=== PATIENT | female | born 1945 | race Caucasian/White ===

== ENCOUNTER 2016-09-05 16:13 | Emergency (ER) | payer MEDICARE ==
[2016-09-05] MEDS ORDERED: KETOROLAC 60 MG/2 ML VIAL IVP STA (17:01)
[2016-09-05] MEDS ORDERED: SODIUM CHLORIDE 0.9% 1,000 ML IV ONE (17:01)
[2016-09-05] MEDS ORDERED: KETOROLAC 30 MG/ML VIAL ONE (17:13)
[2016-09-05] MEDS ORDERED: HYDROcod/ACET 5/325 Prepack 6 PO STA (20:56)
[2016-09-05] MEDS ORDERED: HYDROcod/ACET 5/325 Prepack 6 PO ONE (21:15)
[2016-09-05] MEDS ORDERED: LIDOCAINE PATCH 5% TOP STA (21:37)
[2016-09-05] MEDS ORDERED: LIDOCAINE PATCH 5% TOP ONE (21:38)
== END 2016-09-05 21:48 | disposition home or self-care (01) ==
DX: R10.11 Right upper quadrant pain (principal); R10.31 Right lower quadrant pain; I48.91 Unspecified atrial fibrillation; J45.909 Unspecified asthma, uncomplicated; G40.909 Epilepsy, unspecified, not intractable, without status epilepticus
CPT/HCPCS: 36415; 74176; 80053; 81003; 83690; 85025; 96374; 99284; A9270

== ENCOUNTER 2018-03-20 10:17 | Outpatient (CLI) | payer MEDICARE ==
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
== END 2018-03-20 10:18 | disposition home or self-care (01) ==
LOC: DI 10:17
PROVIDERS: ATTEND Psychiatry & Neurology Neurology
DX: M81.0 Age-related osteoporosis without current pathological fracture (principal); E55.9 Vitamin D deficiency, unspecified; G40.109 Localization-related (focal) (partial) symptomatic epilepsy and epileptic syndromes with simple partial seizures, not intractable, without status epilepticus; R53.83 Other fatigue; T88.7XXA Unspecified adverse effect of drug or medicament, initial encounter
CPT/HCPCS: 36415; 77080; 80053; 80185; 81599; 82652; 84443; 85025

== ENCOUNTER 2018-03-20 11:19 | Outpatient (CLI) | payer MEDICARE ==
[2018-03-20 12:03] LABS: BASOPHILS % (AUTO) 0.4 %; EOSINOPHILS # (AUTO) 0.1 10^3/uL (0.0-0.7); EOSINOPHILS % (AUTO) 0.9 %; HGB - HEMOGLOBIN 13.7 g/dL (12.0-16.0); LYMPHOCYTES # (AUTO) 1.4 10^3/uL (1.5-3.5); LYMPHOCYTES % (AUTO) 18.4 %; MEAN CORPUSCULAR HGB CONC 33.9 g/dL (32.0-36.0); MEAN CORPUSCULAR VOLUME 91.5 fL (81.0-99.0); MEAN PLATELET VOLUME 8.6 fL (7.9-10.8); MONOCYTES # (AUTO) 0.7 10^3/uL (0.0-1.0); MONOCYTES % (AUTO) 8.7 %; NEUTROPHILS # (AUTO) 5.4 10^3/uL (1.5-6.6); NEUTROPHILS % (AUTO) 71.6 %; PLT - PLATELET COUNT 231 10^3/uL (130-450); RED BLOOD COUNT 4.41 10^6/uL (4.20-5.40); RED CELL DISTRIBUTION WIDTH 13.9 % (12.0-15.0); WHITE BLOOD COUNT 7.5 x10^3/uL (4.8-10.8)
[2018-03-20 12:14] LABS: ALBUMIN/GLOBULIN RATIO 1.3 (1.0-2.2); BILIRUBIN,TOTAL 0.4 mg/dL (0.2-1.0); CREATININE 0.5 mg/dL (0.4-1.0); PHENYTOIN (DILANTIN) 16.5 ug/mL; TOTAL PROTEIN 7.1 g/dL (6.7-8.2)
== END 2018-03-20 11:20 | disposition home or self-care (01) ==
LOC: LAB 11:19
PROVIDERS: ATTEND Psychiatry & Neurology Neurology
DX: E55.9 Vitamin D deficiency, unspecified (principal); G40.109 Localization-related (focal) (partial) symptomatic epilepsy and epileptic syndromes with simple partial seizures, not intractable, without status epilepticus; R53.83 Other fatigue; T88.7XXA Unspecified adverse effect of drug or medicament, initial encounter
CPT/HCPCS: 36415; 80053; 80185; 81599; 82652; 84443; 85025

== ENCOUNTER 2018-06-30 12:24 | Outpatient (CLI) | payer MEDICARE | END 2018-06-30 12:25 | disposition critical access hospital (66) | LOC: EMS 12:24 | PROVIDERS: ATTEND Surgery | DX: M54.2 Cervicalgia (principal); M54.9 Dorsalgia, unspecified; V43.52XA Car driver injured in collision with other type car in traffic accident, initial encounter; Y92.413 State road as the place of occurrence of the external cause | CPT/HCPCS: A0425; A0429 ==

== ENCOUNTER 2018-06-30 12:55 | Emergency (ER) | payer OTHER, MEDICARE ==
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
[2018-06-30] MEDS ORDERED: KETOROLAC 60 MG/2 ML VIAL IM STA (17:22)
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
[2018-06-30 21:40] VITALS: BP 141/98
== END 2018-06-30 23:06 | disposition home or self-care (01) ==
LOC: EDUNIT# → ED 12:55
DX: T14.8XXA Other injury of unspecified body region, initial encounter (principal); V43.52XA Car driver injured in collision with other type car in traffic accident, initial encounter; Y92.411 Interstate highway as the place of occurrence of the external cause; F32.9 Major depressive disorder, single episode, unspecified; I48.91 Unspecified atrial fibrillation; R01.1 Cardiac murmur, unspecified
CPT/HCPCS: 70450; 71045; 72070; 72100; 72125; 96372; 99283

== ENCOUNTER 2018-08-08 16:19 | Outpatient (CLI) | payer MEDICARE | END 2018-08-08 16:20 | disposition home or self-care (01) | LOC: EMS 16:19 | PROVIDERS: ATTEND Surgery | DX: R42 Dizziness and giddiness (principal); R11.2 Nausea with vomiting, unspecified; R10.31 Right lower quadrant pain | CPT/HCPCS: A0425; A0427; A0888 ==

== ENCOUNTER 2022-09-01 17:52 | Outpatient (CLI) | payer MEDICARE | END 2022-09-01 17:53 | disposition EMS.NT | LOC: EMS 17:52 | DX: S61.210A Laceration without foreign body of right index finger without damage to nail, initial encounter (principal); W26.0XXA Contact with knife, initial encounter ==

== ENCOUNTER 2023-06-26 19:27 | Outpatient (CLI) | payer MEDICARE | END 2023-06-26 19:28 | disposition critical access hospital (66) | LOC: EMS 19:27 | DX: M79.651 Pain in right thigh (principal); R20.8 Other disturbances of skin sensation | CPT/HCPCS: A0425; A0429 ==

== ENCOUNTER 2023-06-26 20:00 | Emergency (ER) | payer MEDICARE ==
[2023-06-26] MEDS ORDERED: oxyCODONE 5 MG TABLET PO STA (20:19)
[2023-06-26] MEDS ORDERED: ACETAMINOPHEN 325 MG TABLET PO STA (20:20)
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
--- NOTE | 2023-06-26 21:11 | XRAY Report ---
PROCEDURE: Knee 2 View RT INDICATIONS: knee pain X 1 week, hx knee surg 1995 TECHNIQUE: 2 views of the knee(s) were acquired. COMPARISON: None. FINDINGS: Bones: No fractures or dislocations. No suspicious bony lesions. Mild medial and lateral compartmen t osteoarthrosis. Soft tissues: Large knee joint effusion. No suspicious soft tissue calcifications or masses. IMPRESSION: Large knee joint effusion without acute osseous abnormality. Mild medial and lateral compartment oste oarthrosis. Reviewed by: Porsche Tomas MD on 06/26/2023 9:10 PM PST Approved by: Porsche Tomas MD on 06/26/2023 9:10 PM PST Station ID: [id number]
[2023-06-26] MEDS ORDERED: HYDROmorphone 1 MG/ML CARPUJECT IM STA (21:35)
[2023-06-26] MEDS ORDERED: oxyCODONE/ACET 5/325 Prepack 4 PO STA (21:36)
[2023-06-27] MEDS ORDERED: levETIRAcetam 250 MG TABLET PO STA ×3 (00:08→17:01)
[2023-06-27] MEDS ORDERED: GABAPENTIN 100 MG CAPSULE PO STA ×2 (00:09→02:15)
[2023-06-27] MEDS ORDERED: diltiaZEM CD 120 MG CAPSULE PO STA ×3 (00:09→23:00)
[2023-06-27] MEDS ORDERED: lamoTRIgine 25 MG TABLET PO STA ×2 (00:10→02:15)
[2023-06-27] MEDS ORDERED: PHENobarbitaL 32.4 MG TABLET PO SCH (03:00)
[2023-06-27] MEDS ORDERED: PHENobarbitaL 32.4 MG TABLET PO STA (03:13)
[2023-06-27] MEDS ORDERED: ACETAMINOPHEN 325 MG TABLET PO STA (10:56)
[2023-06-27] MEDS ORDERED: oxyCODONE 5 MG TABLET PO STA (10:56)
[2023-06-27] MEDS: NAPROXEN 250 MG TABLET PO STA ×2 (11:05→11:10)
[2023-06-27] MEDS ORDERED: HYDROmorphone 1 MG/ML CARPUJECT IM STA ×2 (12:51→14:03)
--- NOTE | 2023-06-27 13:20 | MRI Report ---
PROCEDURE: KNEE WO - RT INDICATIONS: acute injury right knee, effusion, can't walk TECHNIQUE: Noncontrast sagittal PD fast spin echo and T2 fast spin echo with fat saturation, sagittal 3-D gradie nt sequence with fat saturation; coronal T1 spin echo and PD fast spin echo with fat saturation, and axial PD fast spin echo with fat saturation through the knee. COMPARISON: None. FINDINGS: Image quality: Excellent. Menisci: Horizontal linear high T2 signal intensity traverses the inner, middle, peripheral thirds of the posterior horn medial meniscus, demonstrating inferior articular surface extension. Vertically o riented linear high signal intensity traverses the middle third of the posterior horn needle meniscus , demonstrating superior and inferior articular surface extension, indicating vertical tearing. Later al meniscus demonstrates linear oblique high T2 signal intensity within the inner, middle, peripheral thirds of the body and posterior horn, demonstrating inferior articular surface extension, indicatin g oblique tearing. Cruciate ligaments: The anterior and posterior cruciate ligaments appear intact. Medial structures: The medial collateral ligament appears intact. Visualized portions of the pes ans erinus tendons appear normal. No abnormal bursal fluid. Lateral structures: The lateral collateral ligament demonstrates moderate T2 signal elevation at the femoral origin. The long and short heads of the biceps femoris tendon appear intact. The popliteus tendon appears normal. Iliotibial band appears normal. Anterior structures: The quadriceps and patellar tendons appear intact. Patellar alignment is chin l. No femoral trochlear dysplasia or ventral trochlear prominence. No edema in the infrapatellar fa t pad. Bones and cartilage: No bone marrow contusions or fractures. There is moderate tricompartmental ching articular osteophyte formation. Moderate diffuse cartilage loss diffusely overlies the weightbearing aspects of the medial and lateral compartments. Superimposed high-grade articular cartilage loss over lies the posterior weightbearing aspect of the lateral femoral condyle. High-grade articular cartilag e loss overlies the lateral femoral trochlea and lateral patellar facet. Joint space: There is a moderate knee joint effusion. There is an intra-articular loose body measuri ng 10 mm posteriorly. There is a 24 mm high T2 intensity focus within the right aspect of the suprapa tellar recess, possibly indicating an atypical loose body or intra-articular debris. Small ganglion c yst along the popliteus. No Olmedo's cyst. Normal appearing synovial plicae are incidentally noted. IMPRESSION: 1. Medial and lateral meniscal tearing. 2. Tricompartmental osteophyte is with associated articular cartilage loss. 3. Knee joint effusion and intra-articular loose bodies/debris as above. 4. Partial-thickness lateral collateral ligament tear. Reviewed by: Shabana Best MD on 06/27/2023 1:19 PM PST Approved by: Shabana Best MD on 06/27/2023 1:19 PM PST Station ID: [id number]
[2023-06-27] MEDS ORDERED: NAPROXEN 250 MG TABLET PO STA (17:02)
[2023-06-27] MEDS ORDERED: lamoTRIgine 100 MG TABLET PO STA (17:02)
--- NOTE | 2023-06-27 17:41 | ED Physician Documentation ---
ED Addendum - Addendum Addendum: 06/27/23 17:37 The care of the patient was assumed by me after change of shift. She seems reasonably comfortable lying in bed without movement of the knee. She has significant pain with even movement turning to the side while in bed. Attempting flexion extension hurts quite a bit. There is no locking apparent. Passive range of motion was painful as well suggesting not a locked joint as I was able to go through moderate range of motion. There is a mild to moderate effusion but not significant. Given the degree of pain, I was concern for missing occult other injury. We did do an MRI of the knee and it was done in a reasonably timely fashion after a few hours. The MRI showed medial and lateral meniscal tears with some higher intensity T2 weighting on the lateral aspect suggesting more acute injury. There was a 10 mm loose body noted as well. There is arthritic changes. Decreased meniscal thickness. General arthritic changes. No fractures. The patient was given a knee brace and worked with physical therapy on a wheeled walker. She had arm ability to get up to standing but did not pull full weight on the knee because of the discomfort. The knee did not appear to be giving out according to physical therapy. I did talk curbside with our orthopedist Dr. Goldberg who was in the department for different patient. I reviewed the findings and MRI. He states that would be no surgical intervention at this point acutely. Subsequently if not improving, discussion for knee replacement could be undertaken. At this point no surgical intervention or acute treatment other than knee brace and walker anti-inflammatories and pain medicine and per radiology orthopedics. The patient states that still hurting too much for her to discharge home. She was given repeat dosing of pain medicine and added anti-inflammatories. She states she is not able to function with this. She does live by herself. Parallel to this evaluation, social work did talk with her several times. They were looking at potential rehab or retirement short-term. Apparently funding was prohibitive. At this point the patient is stating she is unsafe to go home because of her inability to put weight on her knee without significant pain. I do not see it fitting admission criteria necessarily either so we will presumably board her in the ER pending other disposition.
[2023-06-27] MEDS ORDERED: ONDANSETRON ODT 4 MG TABLET TL STA (18:10)
[2023-06-27] MEDS: ACETAMINOPHEN 325 MG TABLET PO SCH ×2 (19:45→22:35)
[2023-06-27] MEDS: DOCUSATE SODIUM 100 MG CAPSULE PO SCH (21:22)
[2023-06-27] MEDS: MELOXICAM 7.5 MG TABLET PO SCH (21:22)
[2023-06-27] MEDS: PHENobarbitaL 32.4 MG TABLET PO SCH (21:22)
[2023-06-27] MEDS: GABAPENTIN 100 MG CAPSULE PO SCH (21:22)
[2023-06-27] MEDS: oxyCODONE 5 MG TABLET PO SCH (21:22)
[2023-06-28 00:39] LABS: BILIRUBIN,URINE NEGATIVE (NEGATIVE); GLUCOSE, URINE (UA) NEGATIVE (NEGATIVE); KETONES,URINE (UA) 15 mg/dL (NEGATIVE); LEUKOCYTE ESTERASE, URINE TRACE (NEGATIVE); NITRITE,URINE POSITIVE (NEGATIVE); OCCULT BLOOD,URINE NEGATIVE (NEGATIVE); PH,URINE 5.5 PH (5.0-7.5); PROTEIN,URINE NEGATIVE (NEGATIVE); UROBILINOGEN,URINE 1 (NORMAL) E.U./dL (NORMAL)
[2023-06-28 00:51] LABS: BACTERIA,URINE Rare /HPF (None Seen); CLARITY,URINE CLEAR (CLEAR); MUCUS,URINE Few Strands; RBC,URINE 0-5 /HPF (0-5); SQUAMOUS EPITHELIAL CELL,UR FEW Squamous (<= Few); WBC,URINE 0-3 /HPF (0-5)
--- NOTE | 2023-06-28 03:21 | ED Physician Documentation ---
ED Addendum - Addendum Addendum: 06/28/23 03:20 Patient still boarding in the ED. she c/o dysuria and increased frequency overnight. u/a shows infection concerning for simple cystitis. antibiotics ordered. plan to endorse to incoming daytime ED MD at 7am shift change.
[2023-06-28] MEDS: PANTOPRAZOLE 40 MG TABLET PO SCH (06:22)
[2023-06-28] MEDS: oxyCODONE 5 MG TABLET PO SCH ×3 (06:24→21:00)
[2023-06-28] MEDS: ACETAMINOPHEN 325 MG TABLET PO SCH ×4 (08:47→20:59)
[2023-06-28] MEDS: diltiaZEM CD 180 MG CAPSULE PO SCH ×2 (08:47→09:03)
[2023-06-28] MEDS: MELOXICAM 7.5 MG TABLET PO SCH ×2 (08:47→20:59)
[2023-06-28] MEDS: DOCUSATE SODIUM 100 MG CAPSULE PO SCH ×2 (08:47→20:59)
[2023-06-28] MEDS: NITROFURANTOIN MACRO 100 MG CAPSULE PO SCH ×2 (08:48→20:59)
[2023-06-28] MEDS: ENOXAPARIN 40 MG/0.4 ML SYRINGE SUBQ SCH (08:48)
[2023-06-28] MEDS ORDERED: levETIRAcetam 250 MG TABLET PO SCH (09:00)
[2023-06-28] MEDS ORDERED: lamoTRIgine 100 MG TABLET PO SCH (09:00)
--- NOTE | 2023-06-28 12:24 | ED Physician Documentation ---
ED Addendum - Addendum Addendum: 06/28/23 12:22 The patient is maintained on her usual medications. We did add in ondansetron every 6 hours if needed as a as needed for nausea. Otherwise seems stable. Social work states her insurance, [employer], does allow for placement in a longterm for rehab without a 3-day stay. They are therefore looking at placement for her for help with care due to her acute knee injury and inability to really sustain standing and walking. We are awaiting to hear back from the facilities as far as acceptance. The patient is advised of this. At this point we are maintaining her boarding in the ER while working on that.
[2023-06-28] MEDS: ONDANSETRON ODT 4 MG TABLET TL PRN ×2 (12:42→21:08)
[2023-06-28] MEDS ORDERED: LORazepam 0.5 MG TABLET PO PRN (20:46)
[2023-06-28] MEDS: GABAPENTIN 100 MG CAPSULE PO SCH (20:58)
[2023-06-28] MEDS: PHENobarbitaL 32.4 MG TABLET PO SCH (20:59)
[2023-06-28] MEDS: diltiaZEM CD 120 MG CAPSULE PO SCH (20:59)
[2023-06-28] MEDS: NYSTATIN POWDER 15 GM TOP SCH (21:00)
[2023-06-28] MEDS: lamoTRIgine 100 MG TABLET PO SCH (21:08)
[2023-06-28] MEDS: levETIRAcetam 250 MG TABLET PO SCH (21:08)
--- NOTE | 2023-06-29 04:11 | ED Physician Documentation ---
ED Addendum - Addendum Addendum: 06/29/23 04:08 Patient reported stabbing left-sided chest pain to patient's nurse. Has known history of atrial fibrillation. EKG obtained at 02 48: 6 atrial fibrillation with known rate 88, no abnormal axis, nonspecific ST-T wave abnormalities noted in the inferior leads unchanged from previous EKG. No signs of STEMI. Initial high-sensitivity troponin obtained at approximately 0300 hrs. was negative. Patient reevaluated and found to be resting comfortably and in no acute distress.
[2023-06-29] MEDS: PANTOPRAZOLE 40 MG TABLET PO SCH (06:26)
[2023-06-29] MEDS: oxyCODONE 5 MG TABLET PO SCH ×3 (06:27→23:26)
[2023-06-29 07:44] LABS: BASOPHILS % (AUTO) 0.4 %; EOSINOPHILS # (AUTO) 0.2 10^3/uL (0.0-0.7); HCT - HEMATOCRIT 35.5 % (37.0-47.0); HGB - HEMOGLOBIN 11.6 g/dL (12.0-16.0); LYMPHOCYTES # (AUTO) 1.3 10^3/uL (1.5-3.5); LYMPHOCYTES % (AUTO) 17.4 %; MEAN CORPUSCULAR HEMOGLOBIN 30.1 pg (27.0-31.0); MEAN CORPUSCULAR HGB CONC 32.7 g/dL (32.0-36.0); MEAN PLATELET VOLUME 10.7 fL (7.9-10.8); MONOCYTES # (AUTO) 1.1 10^3/uL (0.0-1.0); MONOCYTES % (AUTO) 14.4 %; NEUTROPHILS % (AUTO) 64.7 %; PLT - PLATELET COUNT 204 10^3/uL (130-450); RED BLOOD COUNT 3.86 10^6/uL (4.20-5.40); RED CELL DISTRIBUTION WIDTH 13.4 % (12.0-15.0); WHITE BLOOD COUNT 7.7 x10^3/uL (4.8-10.8)
[2023-06-29 08:03] LABS: ALBUMIN 3.6 g/dL (3.2-5.5); ALBUMIN/GLOBULIN RATIO 1.6 (1.0-2.2); ALKALINE PHOSPHATASE 240 IU/L (42-121); ALT ALANINE AMINOTRANSFERASE 56 IU/L (10-60); AST ASPARTATE AMINOTRANSFERASE 75 IU/L (10-42); BILIRUBIN,TOTAL 0.6 mg/dL (0.2-1.0); BUN - BLOOD UREA NITROGEN 10 mg/dL (6-20); CALCIUM 9.4 mg/dL (8.5-10.3); CARBON DIOXIDE - CO2 31 mmol/L (21-32); CHLORIDE 101 mmol/L (101-111); CREATININE 0.5 mg/dL (0.6-1.3); GFR - MDRD 119 (>89); GLUCOSE 103 mg/dL (74-104); LIPASE < 10 U/L (11-82); POTASSIUM 3.9 mmol/L (3.5-4.5); SODIUM 137 mmol/L (135-145); TOTAL PROTEIN 5.8 g/dL (6.4-8.9)
[2023-06-29] MEDS: ONDANSETRON ODT 4 MG TABLET TL PRN ×3 (08:53→23:26)
[2023-06-29] MEDS: ACETAMINOPHEN 325 MG TABLET PO SCH ×5 (09:12→22:04)
[2023-06-29] MEDS: levETIRAcetam 250 MG TABLET PO SCH ×2 (09:13→21:05)
[2023-06-29] MEDS: MELOXICAM 7.5 MG TABLET PO SCH ×2 (09:13→23:25)
[2023-06-29] MEDS: NITROFURANTOIN MACRO 100 MG CAPSULE PO SCH ×2 (09:14→22:05)
[2023-06-29] MEDS: DOCUSATE SODIUM 100 MG CAPSULE PO SCH ×2 (09:14→22:04)
[2023-06-29] MEDS: ENOXAPARIN 40 MG/0.4 ML SYRINGE SUBQ SCH (09:14)
[2023-06-29] MEDS: lamoTRIgine 100 MG TABLET PO SCH ×2 (09:14→22:05)
[2023-06-29] MEDS: NYSTATIN POWDER 15 GM TOP SCH ×2 (09:15→21:49)
[2023-06-29] MEDS: GABAPENTIN 100 MG CAPSULE PO SCH (21:04)
[2023-06-29] MEDS: diltiaZEM CD 120 MG CAPSULE PO SCH (21:05)
[2023-06-29] MEDS: PHENobarbitaL 32.4 MG TABLET PO SCH (22:06)
[2023-06-30] MEDS: oxyCODONE 5 MG TABLET PO SCH ×3 (06:27→21:39)
[2023-06-30] MEDS: PANTOPRAZOLE 40 MG TABLET PO SCH (06:28)
[2023-06-30] MEDS: MELOXICAM 7.5 MG TABLET PO SCH (09:27)
[2023-06-30] MEDS: NYSTATIN POWDER 15 GM TOP SCH ×2 (09:29→23:18)
[2023-06-30] MEDS: ACETAMINOPHEN 325 MG TABLET PO SCH ×4 (09:32→21:21)
[2023-06-30] MEDS: DOCUSATE SODIUM 100 MG CAPSULE PO SCH ×2 (09:33→21:30)
[2023-06-30] MEDS: ENOXAPARIN 40 MG/0.4 ML SYRINGE SUBQ SCH (09:33)
[2023-06-30] MEDS: lamoTRIgine 100 MG TABLET PO SCH ×2 (09:33→21:37)
[2023-06-30] MEDS: NITROFURANTOIN MACRO 100 MG CAPSULE PO SCH ×2 (09:34→21:37)
[2023-06-30] MEDS: levETIRAcetam 250 MG TABLET PO SCH ×2 (09:34→21:38)
[2023-06-30] MEDS: ONDANSETRON ODT 4 MG TABLET TL PRN ×3 (09:35→21:44)
--- NOTE | 2023-06-30 15:53 | ED Physician Documentation ---
ED Addendum - Addendum Addendum: 06/30/23 15:51 The patient is feeling more relaxed and less anxious about her care and the concern for loss of independence (she did not states that specifically but what I gleaned from the conversation), and that the pain has improved a bit and she is able to move some within the bed and she did walk from her bed to the nurses station and back with her walker and knee brace last evening/overnight. It still hurt quite a bit but she is feeling significantly better than initial inju ry. At this point it does not seem quite set up for her to be home just yet but she is looking more towards discharge home rather than jail. We would still need to likely set up home health and some other resources. As such I would not try to discharge her this evening but reevaluate it tomorrow along with social work input. The patient is complaining of some nausea regularly. She attributes it to perhaps the meloxicam. She has had some improvement with soda and Zofran. We can try changing the anti-inflammatory and perhaps adding some antacid. Otherwise remain with the current treatment plan.
[2023-06-30] MEDS: MAG HYDROX/AL HYDROX/SIMETH 30 ML UDC PO SCH ×2 (18:07→23:17)
[2023-06-30] MEDS: GABAPENTIN 100 MG CAPSULE PO SCH (21:19)
[2023-06-30] MEDS: PHENobarbitaL 32.4 MG TABLET PO SCH (21:20)
[2023-06-30] MEDS: diltiaZEM CD 120 MG CAPSULE PO SCH (21:36)
[2023-06-30] MEDS: NAPROXEN 250 MG TABLET PO SCH (21:38)
[2023-07-01] MEDS: PANTOPRAZOLE 40 MG TABLET PO SCH (06:41)
[2023-07-01] MEDS: oxyCODONE 5 MG TABLET PO SCH ×3 (06:42→22:10)
[2023-07-01] MEDS: ONDANSETRON ODT 4 MG TABLET TL PRN ×3 (06:51→22:11)
[2023-07-01] MEDS: NITROFURANTOIN MACRO 100 MG CAPSULE PO SCH ×2 (09:37→22:04)
[2023-07-01] MEDS: ENOXAPARIN 40 MG/0.4 ML SYRINGE SUBQ SCH (09:37)
[2023-07-01] MEDS: DOCUSATE SODIUM 100 MG CAPSULE PO SCH ×2 (09:37→22:07)
[2023-07-01] MEDS: MAG HYDROX/AL HYDROX/SIMETH 30 ML UDC PO SCH ×4 (09:37→22:11)
[2023-07-01] MEDS: lamoTRIgine 100 MG TABLET PO SCH ×2 (09:37→22:03)
[2023-07-01] MEDS: ACETAMINOPHEN 325 MG TABLET PO SCH ×4 (09:38→20:52)
[2023-07-01] MEDS: levETIRAcetam 250 MG TABLET PO SCH ×2 (09:38→22:02)
[2023-07-01] MEDS: NYSTATIN POWDER 15 GM TOP SCH ×2 (09:38→22:14)
[2023-07-01] MEDS: NAPROXEN 250 MG TABLET PO SCH ×2 (09:38→22:11)
--- NOTE | 2023-07-01 18:16 | ED Physician Documentation ---
ED Addendum - Addendum Addendum: 07/01/23 18:14 The patient without notable problems overnight into today. Reportedly was up with the walker bedside for commode. She is on regular regimen of Tylenol and added pain medicines when needed. I had changed her anti-inflammatories as she thought it was contributing to some nausea yesterday. She states seems less nauseous today. She will be evaluated by a reviewer for placement for halfway tomorrow. It was planned for today but the reviewer could not make it. I will fill out the patient's transition orders for halfway and they are awaiting confirmation for the patient to be approved. Assuming she will be tomorrow, [facility] does have a space for her.
[2023-07-01] MEDS: GABAPENTIN 100 MG CAPSULE PO SCH (22:05)
[2023-07-01] MEDS: PHENobarbitaL 32.4 MG TABLET PO SCH (22:06)
[2023-07-01] MEDS: diltiaZEM CD 120 MG CAPSULE PO SCH (22:08)
--- NOTE | 2023-07-01 22:23 | ED Physician Documentation ---
ED Addendum - Addendum Addendum: No changes during my shift. Patient signed out to the oncoming emergency department physician.
[2023-07-01 23:59] LABS: B. PARAPERTUSSIS- RESP PCR PAN NOT DETECTED; B. PERTUSSIS- RESP PCR PANEL NOT DETECTED; C. PNEUMONIAE- RESP PCR PANEL NOT DETECTED; CORONAVIRUS 229E-RESP PCR NOT DETECTED; CORONAVIRUS HKU1-RESP PCR NOT DETECTED; CORONAVIRUS NL63-RESP PCR NOT DETECTED; CORONAVIRUS OC43-RESP PCR NOT DETECTED; HUMAN METAPNEUMOVIRUS NOT DETECTED; INFLUENZA A- RESP PCR PANEL NOT DETECTED; INFLUENZA B - RESP PCR PANEL NOT DETECTED; M. PNEUMONIAE- RESP PCR PANEL NOT DETECTED; PARAINFLUENZA VIRUS 1 NOT DETECTED; PARAINFLUENZA VIRUS 2 NOT DETECTED; PARAINFLUENZA VIRUS 3 NOT DETECTED; PARAINFLUENZA VIRUS 4 NOT DETECTED; RHINOVIRUS/ENTEROVIRUS NOT DETECTED; RSV- RESP PCR PANEL NOT DETECTED; SARS-CoV-2 -RESP PCR PANEL NOT DETECTED
--- NOTE | 2023-07-02 05:37 | ED Physician Documentation ---
ED Addendum - Addendum Addendum: 07/02/23 05:36 Patient is exhibiting signs of improvement she is able to get up out of the bed now by herself with her knee immobilizer in place and ambulate to the bathroom.
[2023-07-02] MEDS: oxyCODONE 5 MG TABLET PO SCH (06:15)
[2023-07-02] MEDS: PANTOPRAZOLE 40 MG TABLET PO SCH (06:15)
[2023-07-02 06:27] VITALS: BP 127/69; O2SAT 94
[2023-07-02] MEDS: ACETAMINOPHEN 325 MG TABLET PO SCH (09:50)
[2023-07-02] MEDS: lamoTRIgine 100 MG TABLET PO SCH (09:52)
[2023-07-02] MEDS: DOCUSATE SODIUM 100 MG CAPSULE PO SCH (09:52)
[2023-07-02] MEDS: NAPROXEN 250 MG TABLET PO SCH (09:53)
[2023-07-02] MEDS: levETIRAcetam 250 MG TABLET PO SCH (09:53)
[2023-07-02] MEDS: MAG HYDROX/AL HYDROX/SIMETH 30 ML UDC PO SCH (09:53)
[2023-07-02] MEDS: ENOXAPARIN 40 MG/0.4 ML SYRINGE SUBQ SCH (09:54)
[2023-07-02] MEDS: NYSTATIN POWDER 15 GM TOP SCH (09:57)
--- NOTE | 2023-07-02 11:46 | ED Physician Documentation ---
ED Addendum - Addendum Addendum: 07/02/23 11:44 The patient has had a jail facility accept her and she is due to go there this afternoon arranged and finalized by social workAgueda. The patient had had a UTI and completed 4 to 5 days of antibiotics. The patient is concerned about whether it is cleared. We can repeat a urine test and see if it looks clear. Otherwise she seems to have been doing okay on her current regimen of medicines. Those are being continued. Social work states a primary care has filled out her paperwork for medications and treatment plan at the facility. Disposition: The patient is transferred to jail facility in stable condition Diagnoses: 1. Acute knee injury with meniscal tear 2. Intra-articular loose bodies 3. Severe pain with walking. 4. UTI, treatment completed
[2023-07-02] MEDS: ONDANSETRON ODT 4 MG TABLET TL PRN (12:22)
== END 2023-07-02 13:22 | disposition home or self-care (01) ==
LOC: EDUNIT# → ED 20:00
DX: S83.206A Unspecified tear of unspecified meniscus, current injury, right knee, initial encounter (principal); X58.XXXA Exposure to other specified factors, initial encounter; I48.91 Unspecified atrial fibrillation; R11.0 Nausea; M23.40 Loose body in knee, unspecified knee; N39.0 Urinary tract infection, site not specified; B96.20 Unspecified Escherichia coli [E. coli] as the cause of diseases classified elsewhere; Z79.899 Other long term (current) drug therapy; Z11.52 Encounter for screening for COVID-19
CPT/HCPCS: 36415; 73560; 73721; 80053; 81001; 83690; 84484; 85025; 87077; 87086; 87181; 87633; 93005; 96372; 97116; 97162; 99283; 99284; A9270; J1170; J1650; Q0162

== ENCOUNTER 2023-08-22 14:14 | Outpatient (CLI) | payer MEDICARE ==
[2023-08-26 12:08] LABS: LEVETIRACETAM (KEPPRA) 25.7 ug/mL (10.0-40.0)
[2023-08-26 15:09] LABS: LAMOTRIGINE (LAMICTAL) 4.6 ug/mL (2.0-20.0)
== END 2023-08-22 14:15 | disposition home or self-care (01) ==
LOC: LAB 14:14
PROVIDERS: ATTEND Psychiatry & Neurology Neurology
DX: G40.109 Localization-related (focal) (partial) symptomatic epilepsy and epileptic syndromes with simple partial seizures, not intractable, without status epilepticus (principal)
CPT/HCPCS: 36415; 80175; 80177; 80184; 81599

== ENCOUNTER 2023-09-10 08:00 | Outpatient (CLI) | payer MEDICARE ==
--- NOTE | 2023-09-10 18:36 | XRAY Report ---
PROCEDURE: Knee 4 View BILAT INDICATIONS: BILAT KNEE PAIN TECHNIQUE: 4 views of the knee(s) were acquired. COMPARISON: 06/26/2023 FINDINGS: Bones: Moderate to severe left and moderate right degenerative changes. The worst compartment is the left lateral compartment. Bilateral patellar enthesopathy. Moderate to severe bilateral patellofemora l degenerative changes with lateral patellar tilt. Soft tissues: Small bilateral joint effusions. There are vascular calcifications. Suspected soft tiss ue edema also present bilaterally IMPRESSION: Moderate to severe left and overall moderate right degenerative changes. This particularly involves t he bilateral patellofemoral compartments and the left lateral compartment. Small joint effusions. Vascular calcifications. If there is high concern for further derangement, consider MRI evaluation. Reviewed by: Gio Jim MD on 09/10/2023 6:34 PM PST Approved by: Gio Jim MD on 09/10/2023 6:34 PM PST Station ID: [id number]
== END 2023-09-10 23:59 | disposition home or self-care (01) ==
LOC: DI.WOS 08:00
PROVIDERS: ATTEND Orthopaedic Surgery
DX: M17.0 Bilateral primary osteoarthritis of knee (principal); M25.462 Effusion, left knee; M25.461 Effusion, right knee; I70.203 Unspecified atherosclerosis of native arteries of extremities, bilateral legs